=== PATIENT | male | born 2000 | race African-American/Black ===

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

== ENCOUNTER 2024-11-06 13:11 | Emergency (ER) | payer SELFPAY ==
[~2024-11-06] VITALS: Ht 190.5 cm; Wt 137.0 kg
[~2024-11-06 13:11] MED LIST changes: +IBUP-2028 MT
[2024-11-06 13:41] VITALS: O2SAT 97
[2024-11-06] MEDS ORDERED: IBUP-2029 MT (16:39)
[2024-11-06 17:10] VITALS: BP 120/70; PULSE 76; RESP 16; TEMP 36.8; O2SAT 97
== END 2024-11-06 17:12 | disposition home or self-care (01) ==
LOC: ER 13:27
DX: M79.672 Pain in left foot (principal); Z79.899 Other long term (current) drug therapy; Z88.0 Allergy status to penicillin
CPT/HCPCS: 99282